=== PATIENT | male | born 1985 | race Caucasian/White ===

== ENCOUNTER → 2020-07-05 12:20 | Outpatient (BNVA) | payer SELFPAY | PROVIDERS: PCP Family Medicine; Visit Provider Nurse Practitioner | DX: N50.819 Testicular pain, unspecified (principal); N50.89 Other specified disorders of the male genital organs | CPT/HCPCS: 81000; 87491; 87591 ==

== ENCOUNTER → 2024-04-08 14:09 | Outpatient (BNVA) | payer SELFPAY | PROVIDERS: PCP Family Medicine Adult Medicine; Visit Provider Family Medicine Adult Medicine | DX: Z00.00 Encounter for general adult medical examination without abnormal findings (principal); K40.90 Unilateral inguinal hernia, without obstruction or gangrene, not specified as recurrent | CPT/HCPCS: 80053; 85025 ==

== ENCOUNTER 2024-07-15 08:58 | Day surgery (SDC) | payer SELFPAY ==
[2024-07-15] VITALS (15 sets, daily range): BP systolic 104–148; BP diastolic 58–104; PULSE 82–108; RESP 16–24; TEMP 36.6–37.9; O2SAT 94–100; BMI 19.0
[2024-07-15 09:29] LABS: Basophils % 0.2 %; Eosinophils % 0.2 %; Hematocrit 48.2 % (37-53); Lymphocytes # 0.6 10^3/uL (0.8-4.8); Lymphocytes % 4.9 %; Mean Corpuscular HGB Conc 34.4 g/dL (30-55); Mean Corpuscular Hemoglobin 30.9 pg (27-33); Mean Corpuscular Volume 89.8 fl (82-101); Mean Platelet Volume 9.5 fL (7.4-10.4); Monocytes # 0.6 10^3/uL (0.2-0.9); Monocytes % 4.5 %; Neutrophils # 11.13 10^3/uL (1.8-7.7); Neutrophils % 89.9 %; Nucleated Red Blood Cells % 0 %; Platelet Count 272 10^3/cmm (157-399); Red Blood Count 5.37 10^6/uL (3.85-5.65); Red Cell Distribution Width 12.7 % (12.1-15.1); White Blood Count 12.39 10^3/uL (3.29-11.43)
[2024-07-15 09:45] LABS: Alanine Aminotransferase 15 U/L (0-41); Albumin Level 4.6 g/dL (3.5-5.2); Alkaline Phosphatase 88 U/L (40-130); Anion Gap 15.2 (5-19); Aspartate Amino Transferase 18 U/L (0-40); Blood Urea Nitrogen 8 mg/dL (6-20); Calcium 9.3 mg/dL (8.5-10.5); Carbon Dioxide 27 mmol/L (22-29); Chloride 100 mmol/L (98-107); Creatinine Clr Calc Pharmacy 97.0185; Globulin 2.6 g/dL (1.3-4.6); Glucose 134 mg/dL (65-115); Lipase 62 U/L (13-60); Osmolality Calculated 286 mOsm/kg (285-295); Potassium 4.2 mmol/L (3.5-5.1); Sodium 138 mmol/L (136-145); Total Protein 7.2 g/dL (6.6-8.7)
--- NOTE | 2024-07-15 09:53 | ED_ITS ---
<Statement entered by Adrian Hernandez DO - 07/16/24 06:19> This patient was seen in the emergency department by the physicians anesthesiology physician assistant. She she provided the patient care during this visit. She did review her findings with me and consulted general surgery for acute abdomen specifically acute appendicitis which was unruptured and stable. I placed the admission orders for this patient as per hospital protocol. Did not personally see or evaluate this patient but agreed with the plan of care. HPI - Abdominal Pain 2 General: Chief Complaint: Abdominal Pain Stated Complaint: Abd Pain Time Seen by Provider: 07/15/24 09:06 Source: patient Mode of arrival: ambulatory Limitations: no limitations History of Present Illness: Patient is a 39-year-old male who presents to ED today with a complaint of abdominal pain beginning yesterday evening. Patient states the pain kept him up all night and seem to progressively worsen. He states he feels incredibly nauseous but has not had any episodes of emesis. He states he is still passing stool and flatulence. He states he has a known right inguinal hernia but states it has not been bulging out recently . He is not running fevers. Denies previous similar abdominal pains. No previous abdominal surgeries. He does use marijuana habitually. MD elicited complaint: abdominal pain Pertinent past history: none Onset (ago): day(s) (yesterday evening) Pain Consistency: constant Location: Diffuse Severity: severe Quality: cramping and sharp Radiation: none Migration to: no migration Relieving factors: nothing Associated Symptoms: Reports nausea; Denies change in bowel habits, chills, diarrhea, dysuria, fever(s), heartburn, hematochezia, hematuria, melena and vomiting Related Data Home Medications Medication Instructions Recorded Confirmed No Known Home Medications 03/31/24 07/15/24 Allergies Allergy/AdvReac Type Severity Reaction Status Date / Time No Known Allergies Allergy Verified 03/31/24 14:29 Review of Systems 2 Const: Denies: fever(s), chills, body aches, fatigue or malaise Card: Denies: chest pain Resp: Denies: dyspnea GI: Reports: abdominal pain and nausea; Denies: vomiting, heartburn, diarrhea, change in bowel habits, hematochezia or melena : Denies: flank pain, dysuria or hematuria Musc: Denies: neck pain, back pain, extremity pain, joint pain or joint swelling Skin/Breast: Denies: rash Neuro: Denies: headache(s), numbness in extremities, weakness in extremities, sensory changes or dizziness PFSH ED 2 PFSH: Medical History Total bilirubin, elevated Healthcare maintenance Reducible right inguinal hernia Surgical History History of facial surgery H/O repair of rotator cuff Family History Father No problems noted. Mother Stroke Social History Smoking and tobacco/nicotine status: current every day tobacco/nicotine user cigarettes Packs smoked per day: 1 Second hand smoke exposure: Yes Alcohol intake: former Substance/Drug Use: former Lives independently: Yes Household members: none Physical Exam 2 Const: COMMON NORMALS: average body habitus, patient oriented x3, no limitations, healthy appearing and alert GENERAL APPEARANCE: cooperative and in distress (appears uncomfortable secondary to pain) O RIENTATION/CONSCIOUSNESS: Yes awake, Yes oriented to person, Yes oriented to place and Yes oriented to time Eye: COMMON NORMALS: no scleral icterus Chest: COMMONS NORMALS: normal inspection of the chest and normal palpation of entire chest wall Resp: COMMON NORMALS: normal respiratory effort and clear to auscultation bilaterally AUSCULTATION: clear to auscultation bilaterally Cardio: COMMON NORMALS: regular rate and regular rhythm RATE: regular rate RHYTHM: regular rhythm GI: COMMON NORMALS: Normal to inspection, nondistended, normoactive bowel sounds present, Soft to palpation, No hepatosplenomegaly present and no masses INSPECTION: Yes normal to inspection AUSCULTATION: Yes normoactive bowel sounds PALPATION: Yes Soft to palpation, Yes Tenderness to palpation present (GI) (diffusely but max tenderness to RLQ), Yes Guarding due to palpation present (GI), Yes Rigid due to palpation and Yes No hepatosplenomegaly present : COMMON NORMALS: Yes no CVA tenderness BLADDER/KIDNEY EXAM: Yes no CVA tenderness Back/Pelvis: COMMON NORMALS: no CVA tenderness Extremity: GENERAL: Yes normal exam except as noted Neuro: PAUL COMA SCALE: document GCS findings Paul coma scale eye opening: Spontaneous Sidney coma scale verbal response: Orientated Sidney coma scale motor response: Obey commands Paul coma scale total score: 15 COMMON NORMALS: patient oriented x3 SENSORIUM/ORIENTATION: Yes alert, Yes oriented to person, Yes oriented to place and Yes oriented to time Skin: COMMON NORMALS: no rashes or lesions noted GENERAL SKIN EXAM: no rashes or lesions noted Course 2 Consultations: Consultation #1: Dr. Casper-will admit to observation with plan for OR later today Vital Signs: Vital signs: Vital Signs Temperature 97.8 F 07/15/24 09:31 Pulse Rate 87 07/15/24 09:31 Respiratory Rate 16 07/15/24 10:14 Blood Pressure 130/80 07/15/24 09:31 Pulse Oximetry 96 07/15/24 10:14 Oxygen Delivery Me thod Room Air 07/15/24 09:31 MDM - Abdominal Pain Medical Decision Making Patient is a 39-year-old male here for worsening abdominal pain starting yesterday evening. Vital signs are stable. Blood work showing a white count of 12.39. Remainder of labs overall fairly unremarkable. Isolated mild hyperbilirubinemia. CT scan showing acute appendicitis without rupture. I spoke to general surgeon Dr. Casper who will admit to obs with plan for OR later today. Patient has been made NPO and started on IV Zosyn. Lab Data 07/15/24 09:22 07/15/24 09:22 Labs/Radiology: Radiology Impressions Abdomen/Pelvis CT 07/15/24 09:53 IMPRESSION: 1. Acute appendicitis without rupture. Moderate amount of adjacent periappendiceal inflammation causing a mild enteritis of the adjacent small bowel loops. 2. Very small amount of free fluid in the pelvis. 3. Constipation. 4. Mild hepatomegaly. Laboratory Results WBC 12.39 10^3/uL (3.29-11.43) H 07/15/24 09:22 RBC 5.37 10^6/uL (3.85-5.65) 07/15/24 09:22 Hgb 16.60 g/dL (11.27-16.99) 07/15/24 09:22 Hct 48.2 % (37-53) 07/15/24 09:22 MCV 89.8 fl (82-101) 07/15/24 09:22 MCH 30.9 pg (27-33) 07/15/24 09: MCHC 34.4 g/dL (30-55) 07/15/24 09: RDW 12.7 % (12.1-15.1) 07/15/24 09: Plt Count 272 10^3/cmm (157-399) 07/15/24 09: MPV 9.5 fL (7.4-10.4) 07/15/24 09: Neut % (Auto) 89.9 % 07/15/24 09:22 Lymph % (Auto) 4.9 % 07/15/24 09:22 Griggs % (Auto) 4.5 % 07/15/24 09: Eos % (Auto) 0.2 % 07/15/24 09: Baso % (Auto) 0.2 % 07/15/24 09: Neut # (Auto) 11.13 10^3/uL (1.8-7.7) H 07/15/24 09:22 Lymph # (Auto) 0.6 10^3/uL (0.8-4.8) L 07/15/24 09:22 Griggs # (Auto) 0.6 10^3/uL (0.2-0.9) 07/15/24 09:22 Eos # (Auto) 0.0 10^3/uL (0.0-0.8) 07/15/24 09:22 Baso # (Auto) 0.0 10^3/uL (0.0-0.1) 07/15/24 09: Nucleated RBC % (auto) 0 % 07/15/24 09: Nucleated RBCs # 0.0 /100WBC 07/15/24 09:22 Sodium 138 mmol/L (136-145) 07/15/24 09:22 Potassium 4.2 mmol/L (3.5-5.1) 07/15/24 09: Chloride 100 mmol/L (98-107) 07/15/24 09: Carbon Dioxide 27 mmol/L (22-29) 07/15/24 09:22 Anion Gap 15.2 (5-19) 07/15/24 09:22 BUN 8 mg/dL (6-20) 07/15/24 09:22 Creatinine 0.9 mg/dL (0.7-1.2) 07/15/24 09:22 GFR Calculation 93.0 mL/min (90-130) 07/15/24 09:22 Glucose 134 mg/dL (65-115) H 07/15/24 09:22 Calculated Osmolality 286 mOsm/kg (285-295) 07/15/24 09:22 Calcium 9.3 mg/dL (8.5-10.5) 07/15/24 09:22 Total Bilirubin 2.0 mg/dL (0.15-1.2) H 07/15/24 09:22 AST 18 U/L (0-40) 07/15/24 09:22 ALT 15 U/L (0-41) 07/15/24 09:22 Alkaline Phosphatase 88 U/L (40-130) 07/15/24 09:22 Total Protein 7.2 g/dL (6.6-8.7) 07/15/24 09:22 Albumin 4.6 g/dL (3.5-5.2) 07/15/24 09:22 Globulin 2.6 g/dL (1.3-4.6) 07/15/24 09:22 Lipase 62 U/L (13-60) H 07/15/24 09:22 All radiology interpretation(s) finalized by discharge Discharge Plan Discharge Patient Disposition: Placed in Observation Clinical Impression: Acute appendicitis Qualifiers: Acute appendicitis type: with generalized peritonitis Appendicitis gangrene presence: without gangrene Appendicitis perforation presence: without perforation Appendicitis abscess presence: without abscess Qualified Code(s): K 35.200 - Acute appendicitis with generalized peritonitis, without perforation or abscess Coding Level of Care Code ED [employer]
--- NOTE | 2024-07-15 09:53 | CT_ITS ---
WS: [id number] CT ABDOMEN AND PELVIS WITH CONTRAST HISTORY: abdominal pain TECHNIQUE: Imaging performed of the abdomen and pelvis with IV contrast. Single phase imaging of the abdomen. Coronal and sagittal reformats are submitted. All CT scans at [facility] use at [facility] one of these dose optimization techniques: automated exposure control; mA and/or kV adjustment per patient size (includes targeted exams where dose is matched to clinical indication); or iterative re construction. IV CONTRAST: Omnipaque 350; 100 mL IV. Oral contrast: No DLP: 334.83 mGy.cm COMPARISON: None available. Lower thorax: Mild pulmonary hyperinflation. Heart is normal size. Small hiatal hernia. Liver/biliary system: Mild hepatic steatosis. The liver wraps across the midline overlying the spleen . 6 mm low-attenuation nodule in the far lateral LEFT lobe of the liver may be a hemangioma but is re ally too small to characterize. No additional liver abnormalities. No duct dilatation. Normal portal vein. Gallbladder: Normal. No gallstones or wall thickening. No pericholecystic fluid. Pancreas: Not well visualized due to adjacent bowel. Pancreatic duct is not dilated. Common bile duct is not dilated. Spleen: Normal size spleen. No mass or infarct. Adrenal glands: Normal. Right kidney: Too small to characterize cortical hypodensities. No mass or obstruction. Left kidney: Too small to characterize hypodensities. No mass or obstruction. Aorta: Normal. Lymphadenopathy: None. Free fluid: There is a small amount of free fluid in the RIGHT pelvis. GI tract: The appendix is identified in the RIGHT lower quadrant and dilated measuring 9 mm in diamet er. There is moderate diffuse wall thickening with enhancement. Moderate amount of enhancement surrou nding the appendix. There are adjacent small bowel loops with mildly reactive inflammation also. Zak ed fecal retention throughout the colon. There is a small amount of increased fluid in the distal sma ll bowel. Abdominal wall: Unremarkable abdominal wall. No hernia. Pelvis: Tiny amount of free fluid in the pelvis. Negative urinary bladder. Bones: Unremarkable. CT/CT abdomen pelvis w con* [id number] IMPRESSION: 1. Acute appendicitis without rupture. Moderate amount of adjacent periappendi ceal inflammation causing a mild enteritis of the adjacent small bowel loops. 2. Very small amount of free fluid in the pelvis. 3. Constipation. 4. Mild hepatomegaly.
[2024-07-15] MEDS: iohexol 350 mg/mL 500 mL Btl (per mL) IV (10:02)
[2024-07-15] MEDS: sodium chloride 0.9% 1,000 ML 999 ML IV (10:14)
[2024-07-15] MEDS: morphine 4 mg/mL SDV 1 mL IVP (10:14)
[2024-07-15] MEDS: ondansetron 2 mg/ML SDV 2 mL 4 MG IVP (10:14)
[2024-07-15] MEDS: piperacillin-tazobactam 3.375 GM in sodium chloride 0.9% (plus) 50 ML IV (11:22)
--- NOTE | 2024-07-15 11:24 | P.ANESASSM_ITS ---
Pre-Anesthetic Assessment Height/Weight: Height 6 ft Weight 140 lb Temp Pulse Resp BP Pulse Ox O2 Del Method 97.8 F 82 16 129/94 100 Room Air 07/15/24 09:31 07/15/24 11:05 07/15/24 10:14 07/15/24 11:05 07/15/24 11:05 07/15/24 11:05 Preop Diagnosis: Acute appendicitis Operation Date: 07/15/24 12:30 Proposed Procedures p Laparoscopic Appendectomy(Not Applicable) - Devaughn Casper MD Was Beta Noemi taken within 24 hours: N/A Was Clonidine taken within 24 hours: N/A Social No alcohol Smokes marijuana Exam alert, oriented x 3, clear to auscultation bilaterally and regular rate & rhythm Airway Submandibular: within normal limits Cervical ROM: within normal limits Mallampati: Class II Dentition: full Anesthetic Plan ASA status: 3 Anesthesia: General Other: No prior issues with anesthesia Patient has not had anything to eat since yesterday, few sips of juice around 7 AM today No past medical history, denies cardiac or pulmonary issues METs greater than 4 Smokes marijuana, admits to methamphetamine use. States he last used meth 2 days ago Elevated WBCs, other labs WNL Plan for GETA Medications/Allergies Home Medications Medication Instructions Recorded Confirmed Last Taken Type No Known Home Medications 03/31/24 07/15/24 Unknown History Allergies Allergy/AdvReac Type Severity Reaction Status Date / Time No Known Allergies Allergy Verified 03/31/24 14:29 [facility] Anesthesia Medical History Total bilirubin, elevated Healthcare maintenance Reducible right inguinal hernia Surgical History History of facial surgery H/O repair of rotator cuff Family History Father No problems noted. Mother Stroke Social History Smoking and tobacco/nicotine status: current every day tobacco/nicotine user cigarettes Packs smoked per day: 1 Second hand smoke exposure: Yes Alcohol intake: former Substance/Drug Use: former Lives independently: Yes Household members: none Data Anesthesia 07/15/24 09:22 07/15/24 09:22 Short CBC 07/15/24 Range/Units 09:22 WBC 12.39 H (3.29-11.43) 10^3/uL Hgb 16.60 (11.27-16.99) g/dL Hct 48.2 (37-53) % MCV 89.8 (82-101) fl Plt Count 272 (157-399) 10^3/cmm Neut % (Auto) 89.9 % Neut # (Auto) 11.13 H (1.8-7.7) 10^3/uL BMP 07/15/24 09:22 Sodium 138 Potassium 4.2 Chloride 100 Carbon Dioxide 27 BUN 8 Creatinine 0.9 Glucose 134 H Calcium 9.3 Liver Function 07/15/24 Range/Units 09:22 Total Bilirubin 2.0 H (0.15-1.2) mg/dL AST 18 (0-40) U/L ALT 15 (0-41) U/L Alkaline Phosphatase 88 (40-130) U/L Albumin 4.6 (3.5-5.2) g/dL Microbiology 07/15/24 11:07 Blood Culture - Preliminary Blood SPECIMEN COLLECTED 07/15/24 11:04 Blood Culture - Preliminary Blood SPECIMEN COLLECTED Cardiac Studies: 2 No Data to Display
[2024-07-15 11:30] LABS: Bilirubin Urine Negative (Negative); Blood Urine Negative (Negative); Glucose Urine UA Negative (Normal); Ketones Urine Negative (Negative); Leukocyte Esterase Urine Negative (Negative); Nitrate Urine Negative (Negative); Protein Urine Trace (Negative); Urine Appearance Clear (CLEAR)
[2024-07-15 11:35] LABS: Add Urine Microscopic? YES; Bacteria Urine None Seen /hpf; Hyaline Casts Urine 0-4 /lpf; RBC Urine 0-2 /hpf (0-2); Squamous Epithelial Cell Urine 0-5 /hpf (0-5); WBC Urine 0-5 /hpf (0-5)
--- NOTE | 2024-07-15 11:37 | PC.NURSE ---
pt transported to surgery via surgery team approx @[id number]
--- NOTE | 2024-07-15 11:47 | PM.HP ---
Providers/Chief Complaint Primary Care Provider: Wiley Jamison MD Chief Complaint: Abd Pain History of Present Illness Esa Wilkinson is a 39 year old male presents with 24 hours of right lower quadrant abdominal pain that has been worsening over time. Patient states that he started to have pain yesterday, the pain has continuously worsened and today the pain got unbearable and therefore he presented to the ED. CT scan done in the emergency department show evidence of acute appendicitis with significant periappendiceal inflammation and localized enteritis. There is also an elevated white count of 12 Review of Systems General: Reports: 10 or more systems reviewed and unremarkable except in HPI and below Medications/Allergies Home Medications Medication Instructions Recorded Confirmed Last Taken Type No Known Home Medications 03/31/24 07/15/24 Unknown History Allergies Allergy/AdvReac Type Severity Reaction Status Date / Time No Known Allergies Allergy Verified 03/31/24 14:29 PFSH Acute PFSH: Medical History Total bilirubin, elevated Healthcare maintenance Reducible right inguinal hernia Surgical History History of facial surgery H/O repair of rotator cuff Family History Father No problems noted. Mother Stroke Social History Smoking and tobacco/nicotine status: current every day tobacco/nicotine user cigarettes Packs smoked per day: 1 Second hand smoke exposure: Yes Alcohol intake: former Substance/Drug Use: former Lives independently: Yes Household members: none Vitals/I&O/Wt Last Vital Signs Temp 97.8 F 07/15/24 09:31 Pulse 82 07/15/24 11:05 Resp 16 07/15/24 10:14 BP 129/94 07/15/24 11:05 Pulse Ox 100 07/15/24 11:05 O2 Del Method Room Air 07/15/24 11:05 Weight last 48 hrs Weight 140 lb Physical Exam Narrative: General : Patient is well developed , no acute distress, oriented x3 Head : Normal cephalic, a-traumatic. Nose : Mucous membranes are without erythema. Lungs : Equal chest rise bilaterally, no use of accessory muscles, trachea is midline. CV : Rate and rhythm are normal. Abdomen : Soft, there is tenderness in the right lower quadrant, there is positive rebound tenderness and localized peritonitis Extremities : No edema. Upper extremities are normal bilaterally. Back : non-tender to palpation, no CVA tenderness. Data 07/15/24 09:22 07/15/24 09:22 Micro: Microbiology 07/15/24 11:07 Blood Culture - Preliminary Blood SPECIMEN COLLECTED 07/15/24 11:04 Blood Culture - Preliminary Blood SPECIMEN COLLECTED A&P Assessment and plan (1) Acute appendicitis: Qualifiers: Acute appendicitis type: with generalized peritonitis Appendicitis abscess presence: without abscess Appendicitis gangrene presence: without gangrene Appendicitis perforation presence: without perforation Qualified Code(s): K35.200 - Acute appendicitis with generalized peritonitis, without perforation or abscess Plan 39-year-old male who presents to the hospital with acute appendicitis verified by imaging, physical exam is consistent with acute appendicitis with localized peritonitis, laparoscopic appendectomy is indicated. I have discussed all recent benefits of the procedure with the patient occluding the risk of injuring adjacent structures including the colon and the small bowel vessels of the pelvis and ureter, risk of abscess formation, need for additional interventions, risk of bleeding or infection of the wounds, hernia formation. Patient shows understanding agrees to proceed with surgery. Depending on the findings during the operation patient either will have to stay in the hospital for IV antibiotics or could be discharged today home. Attestations Medical Necessity Statement*: Possible discharge after laparoscopic appendectomy Coding Level of Care Code Acute Code for [facility] Diagnoses Acute appendicitis K35.200 Acute appendicitis type: with generalized peritonitis Appendicitis abscess presence: without abscess Appendicitis gangrene presence: without gangrene Appendicitis perforation presence: without perforation
[2024-07-15 11:50] LABS: Specific Gravity, Urine 1.081 (1.005-1.030); Urine Color Orange (Yellow)
[2024-07-15 11:51] LABS: Add Urine Culture? No; UA Slide Review UA Slide Review Perf
[2024-07-15] MEDS: sodium chloride 0.9% 1,000 ML 30 ML IV (13:01)
[2024-07-15] MEDS: ceFAZolin 2,000 mg SDV 2000 MG IVP (13:16)
[2024-07-15] MEDS: lidocaine-epi 1% 20 mL INJ INJECTION (13:59)
[2024-07-15] MEDS: BUPivacaine 0.25% INJ 10 mL INJECTION (13:59)
--- NOTE | 2024-07-15 14:13 | PM.OP ---
Operative Report Date of procedure: July 15, 2024 Pre-op diagnosis: Acute appendicitis Post-op diagnosis: Acute appendicitis Post-op findings: Inflamed appendix with early phlegmon formation with the omentum and the terminal ileum, mild enteritis of the terminal ileum likely due to local inflammatory process. No perforation noted. Procedure done: Laparoscopic appendectomy Specimens removed/disposition: Appendix Surgeon: Devaughn Casper MD Endoscopy Nurse: ASHLEY OR STaff Estimated blood loss: 5 Complications: None apparent Brief History: 39-year-old male who presented to the hospital with abdominal pain, CT scan of the abdomen pelvis showed evidence of acute appendicitis without perforation, patient was taken to the OR for laparoscopic appendectomy Procedure: Patient was brought into the OR, he was placed in the supine position. General anesthesia was given. The abdomen was prepped and draped in the usual sterile fashion. The abdomen was accessed via infraumbilical incision with an open technique, Corbett trocar was placed and pneumoperitoneum was initiated the Corbett trocar was fixed to the fascia with #0 Vicryl, initial laparoscopy showed no evidence of visceral injury during entry. Additional 5 mm trocars were placed under direct visualization in the suprapubic and left lower quadrant position. The patient was positioned in steep Trendelenburg position with the left side down. A local explained on the right lower quadrant was noted, with careful blunt dissection I was able to remove the omentum and the terminal ileum from the appendix, small amount of fibrinous material was noted surrounding the appendix. Majority of the inflammation was localized around the distal one third of the appendix. I used the LigaSure to take down the mesoappendix to the base, the base of the appendix appeared healthy and therefore I proceeded to transect at this level with a 45 mm blue load Endo BRAULIO stapler. The staple line appeared healthy and hemostatic. The appendix was retrieved via the umbilical trocar site in an Endo Catch bag. Small amount of fluid in the right paracolic gutter was removed using a Ray-Chaz and the Ray-Chaz was then removed from the abdomen. A final laparoscopy was done no evidence of additional pathology was noted small bowel proximal to the terminal ileum appeared completely healthy. The umbilical trocar site was closed with a Jeremiah-Amanda suture passer under direct visualization with a 0 Vicryl. The suprapubic trocar was removed under direct visualization and the left lower quadrant trocar was used to evacuate the pneumoperitoneum and subsequently removed. Local anesthesia was infiltrated in the wounds, the wounds under closed with #4-0 Monocryl for the subcuticular layer of the skin. Dermabond was applied. At the end of the procedure all counts were correct, the patient tolerated well the procedure and was transferred to the PACU in stable condition.
--- NOTE | 2024-07-15 15:20 | ANE.PACU2 ---
Inpatient post-anesthesia follow up: Airway intact: Yes Vital signs: Temperature 100.3 F Pulse Rate 102 Respiratory Rate 18 Blood Pressure 110/72 Pulse Oximetry 96 Oxygen Delivery Me thod Room Air Oxygen Flow Rate Fraction of Inspir ed Oxygen Hydration adequate: Yes Nausea and vomiting: No Pain level: 2 Mental status: Baseline
== END 2024-07-15 15:20 | disposition home or self-care (01) ==
LOC: ER 10:46 → OR 11:51
PROVIDERS: Emergency Provider Physician Assistant; PCP Family Medicine Adult Medicine; Visit Provider Surgery
PROC: 0DTJ4ZZ Resection of Appendix, Percutaneous Endoscopic Approach (ICD-10-PCS; CPT 44970; principal; 2024-07-15 12:30)
DX: K35.33 Acute appendicitis with perforation, localized peritonitis, and gangrene, with abscess (principal); F15.90 Other stimulant use, unspecified, uncomplicated; F12.90 Cannabis use, unspecified, uncomplicated; F17.210 Nicotine dependence, cigarettes, uncomplicated
CPT/HCPCS: 44970; 36415; 74177; 80053; 81001; 83690; 85025; 87040; 88304; J0690; J1100; J1885; J2250; J2270; J2405; J2543; J2704; J2710; J3010; J3490; J7030